=== PATIENT | male | born 2000 | race Caucasian/White ===

== ENCOUNTER → 2019-11-20 | Outpatient (CLI) | payer OTHER ==
--- NOTE | 2019-11-21 07:43 | EKG ---
[facility] [place] [address] ELECTROCARDIOGRAM REPORT Name: LESLIE MA Room #: REG CLI M.R.#: [id number] Admission: 11/20/19 Attend Phys: Ana Lilia Stratton Discharge: Date of : 89 Report #: [id number] THIS REPORT FOR: cc: Joaquin Amin MD, Rick D. MD Lundgren, Craig H. MD [facility] THIS REPORT FOR: //name// [facility] Test Date: 2019-11-20 Test Time: 11:50:54 Pat Name: LESLIE MA Department: Room: Gender: Feeder Tender: Eder MARIANO : 2000 Requested By: Rene Wang Order Number: [id number] MD: Riaz Lei Measurements Intervals [place] Rate: 34 P: 104 OR: 215 QRS: 94 QRSD: 103 T: 62 QT: 435 QTc: 327 Interpretive Statements Sinus bradycardia Sinus arrhythmia Borderline prolonged OR interval Borderline right axis deviation No previous ECG available for comparison Electronically Signed On 11-21-2019 7:43:17 CDT by Riaz Lei [email or web address] <ELECTRONICALLY SIGNED> By: Riaz Lei MD, [facility] 11/21/19 0743 1150 1150 Riaz Lei MD, [facility] /EPI
== END ==
LOC: CV 11:27
PROVIDERS: ATTEND Pediatrics
DX: I49.9 Cardiac arrhythmia, unspecified (principal); R00.2 Palpitations